=== PATIENT | male | born 1955 | race Caucasian/White ===

== ENCOUNTER → 2017-10-01 | Outpatient (CLI) | payer BC ==
--- NOTE | 2017-10-01 12:45 | RAD ---
Right upper quadrant abdominal ultrasound without comparison for right upper quadrant pain for 2 to 3 weeks, intermittent. TECHNIQUE AND FINDINGS: Real-time grayscale and color Doppler evaluation of the right upper quadrant is performed. The pancreas is largely obscured, though visualized portions of the pancreatic are normal in appearance. The aorta is nonaneurysmal. The IVC is patent. There is hepatopedal flow within a patent portal vein. The liver measures 17.1 cm, and is notable for diffuse fatty infiltration with no focal parenchymal atrophy. No intra or extra hepatic biliary ductal dilatation. The common bile duct measures 4 mm in thickness. The gallbladder is fluid distended and grossly unremarkable with no shadowing stones or sludge. No pericholecystic fluid or gallbladder wall thickening. No sonographic Escudero's sign was elicited. The right kidney measures 10.3 x 6.8 x 6.1 cm and demonstrates normal color flow with no hydronephrosis. IMPRESSION: 1. Diffuse fatty infiltration of the liver. 2. No sonographically discernible acute abnormality of the right upper quadrant. Electronically signed by: Ant Fernandez MD (10/01/2017 12:41 PM) [id number]
== END | disposition home or self-care (01) ==
LOC: PMG 11:34
PROVIDERS: ATTEND Family Medicine
DX: K76.0 Fatty (change of) liver, not elsewhere classified (principal)
CPT/HCPCS: 76705

== ENCOUNTER → 2020-06-14 | Outpatient (CLI) | payer BC ==
--- NOTE | 2020-06-14 11:23 | RAD ---
EXAM: Bilateral lower extremity arterial Doppler sonogram. HISTORY: Claudication. Numbness. Cigarette smoking. Atherosclerosis. TECHNIQUE: Palm scale and color Doppler sonographic imaging of the lower extremity arteries with spec tral waveform analysis was performed. COMPARISON: None. FINDINGS: Left lower extremity: There are normal triphasic waveforms throughout the left lower extremity arteri es. There is a mildly elevated peak systolic velocity within the left common femoral artery, measurin g 154 cm/s. The remainder of the left lower extremity artery peak systolic velocities are within norm al limits. Right lower extremity: There is minimal identifiable flow within the right peroneal artery. There are normal triphasic and biphasic waveforms and peak systolic velocities throughout the remainder of the right lower extremity arteries. IMPRESSION: 1. Mildly elevated peak systolic velocity within the left common femoral artery, suggesting mild sten osis. There is no additional Doppler evidence of stenosis involving the left lower extremity arteries . 2. Minimal identifiable flow within the right peroneal artery, suggesting possible hemodynamically si gnificant proximal stenosis. There is no additional Doppler evidence of stenosis involving the right lower extremity arteries. Electronically signed by: Carlene Rankin MD (06/14/2020 11:21 AM) [id number]
--- NOTE | 2020-06-14 11:52 | RAD ---
EXAM: Abdomen and pelvis CT without intravenous contrast. HISTORY: Pain. TECHNIQUE: Computed tomographic images of the abdomen and pelvis were obtained without contrast. Mult iplanar reformatting was performed. *One or more of the following individualized dose reduction techniques were utilized for this examina tion: 1. Automated exposure control. 2. Adjustment of the mA and/or kV according to patient size. 3. Use of iterative reconstruction technique. COMPARISON: None. FINDINGS: Evaluation of the lower thorax demonstrates right posterior dependent atelectasis. There is no infiltrate, pleural effusion or suspicious pulmonary nodule. The heart is normal in size. There i s a small hiatal hernia. There is hepatomegaly and hepatic steatosis. There is focal fatty sparing al kunal the gallbladder fossa. The gallbladder, pancreas, and adrenal glands are unremarkable. There is a tiny splenule inferior to an otherwise unremarkable spleen. There is a 2.2 cm cyst within the mid zone of the left kidney with suspected adjacent cortical lobula tion due to scarring. No convincing solid renal lesion is seen. There is no nephrolithiasis or hydron ephrosis. There is no appendicitis. There is colonic diverticulosis. There is no diverticulitis. There is no gudelia wel obstruction. There is a small fat-containing umbilical hernia. The aorta is normal in caliber. Th ere is a prominent left retroperitoneal lymph node inferior to left renal vein measuring 1.8 cm. Thes e are nonspecific. There is no suspicious osseous lesion. There is no acute osseous finding. There ar e degenerative changes involving the thoracolumbar spine. IMPRESSION: 1. No acute abdominal finding. 2. Hepatomegaly and hepatic steatosis. 3. Colonic diverticulosis. 4. Small hiatal hernia and fat-containing abdominal hernia. 5. Prominent left retroperitoneal lymph node. This is nonspecific and may be physiologic or reactive in etiology. 6. Small simple appearing left renal cyst. Follow-up is not routinely performed for simple cysts. Electronically signed by: Carlene Rankin MD (06/14/2020 11:50 AM) [id number]
== END ==
LOC: US 09:51
PROVIDERS: ATTEND Family Medicine
DX: N28.1 Cyst of kidney, acquired (principal); K44.9 Diaphragmatic hernia without obstruction or gangrene; K42.9 Umbilical hernia without obstruction or gangrene; K76.0 Fatty (change of) liver, not elsewhere classified; R16.0 Hepatomegaly, not elsewhere classified; K57.30 Diverticulosis of large intestine without perforation or abscess without bleeding; I73.9 Peripheral vascular disease, unspecified
CPT/HCPCS: 74150; 93925